=== PATIENT | female | born 1990 ===

== ENCOUNTER 2017-07-18 12:19 | Emergency (ER) | payer OTHER ==
[2017-07-18 12:19] VITALS: BMI 25.0
[2017-07-18 12:57] VITALS: RESP 18; O2SAT 98
[2017-07-18] MEDS ORDERED: Pantoprazole 40 mg EC Tab PO STA (15:26)
[2017-07-18] MEDS ORDERED: Aluminum Hydroxide/Magnesium Hydroxide Susp (30 mL) PO STA (15:26)
[2017-07-18 15:27] LABS: RBC URINE 2 /hpf (0-3); URINE BILIRUBIN NEGATIVE (NEGATIVE); URINE BLOOD NEGATIVE (NEGATIVE); URINE COLOR Yellow (YELLOW); URINE GLUCOSE (UA) NORMAL (Normal); URINE KETONE 2+ mg/dL (NEGATIVE); URINE LEUKOCYTE ESTERASE NEG Leu/uL (Negative); URINE PROTEIN NEGATIVE (NEGATIVE); URINE UROBILINOGEN NORMAL mg/dL (0.2-1.0); WBC URINE 1 /hpf (0-5)
[2017-07-18] MEDS ORDERED: Pantoprazole 40 mg EC Tab PO ONE (16:17)
[2017-07-18] MEDS ORDERED: Aluminum Hydroxide/Magnesium Hydroxide Susp (30 mL) ONE (16:17)
--- NOTE | 2017-07-18 16:21 | C.PDOC ---
History Of Present Illness 26 year old female presents to the ED with complaints of epigastric pain for one week with associated nausea and vomiting. Patient reports pain is worse after eating and describes vomit as yellow watery appearance. She denies diarrhea, chest pain, shortness of breath, or other complaints at this time. Time Seen by Provider: 07/18/17 14:58 Chief Complaint (Nursing): Abdominal Pain History Per: Patient History/Exam Limitations: no limitations Onset/Duration Of Symptoms: Days (1 week ) Current Symptoms Are (Timing): Still Present Location Of Pain/Discomfort: Epigastric Radiation Of Pain To:: None Quality Of Discomfort: Burning Associated Symptoms: denies: Fever, Chills, Nausea, Vomiting, Diarrhea Exacerbating Factors: Food (worse after eating ) Alleviating Factors: None Recent travel outside of the [place]: No Abnormal Vaginal Bleeding: No Past Medical History Reviewed: Historical Data, Nursing Documentation, Vital Signs Vital Signs: Last Vital Signs Temp 99.0 F 07/18/17 16:24 Pulse 71 07/18/17 16:24 Resp 18 07/18/17 16:24 BP 111/73 07/18/17 16:24 Pulse Ox 98 07/18/17 16:25 Family History: States: Unknown Family Hx - Social History Hx Tobacco Use: No Hx Alcohol Use: Yes Hx Substance Use: No - Immunization History Hx Tetanus Toxoid Vaccination: No Hx Influenza Vaccination: No Hx Pneumococcal Vaccination: No Review Of Systems Constitutional: Negative for: Fever, Chills Cardiovascular: Negative for: Chest Pain, Palpitations Respiratory: Negative for: Cough, Shortness of Breath Gastrointestinal: Positive for: Nausea, Vomiting, Abdominal Pain. Negative for : Diarrhea Genitourinary: Negative for: Dysuria, Vaginal Discharge, Vaginal Bleeding Physical Exam - Physical Exam Appears: Non-toxic, No Acute Distress Skin: Warm, Dry, No Rash Head: Atraumatic, Normacephalic, No Tenderness Eye(s): bilateral: Normal Inspection, PERRL, EOMI Oral Mucosa: Moist Neck: Supple Chest: Symmetrical, No Deformity Cardiovascular: Rhythm Regular, No Murmur Respiratory: No Rales, No Rhonchi, No Wheezing, Other (clear to auscultation bilaterally ) Gastrointestinal/Abdominal: Soft, No Tenderness, No Distention, No Guarding, No Rebound Back: No CVA Tenderness Extremity: Normal ROM, No Tenderness Neurological/Psych: Oriented x3 ED Course And Treatment - Laboratory Results Urine POC: Negative O2 Sat by Pulse Oximetry: 98 (RA) Pulse Ox Interpretation: Normal Progress Note: Labs were ordered and patient was given Zofran, Protonix, Pepcid , and Maalox. Reevaluation Time: 16:24 Reassessment Condition: Improved Disposition Counseled Patient/Family Regarding: Studies Performed, Diagnosis, Need For Followup, Rx Given - Disposition Referrals: [facility] [Outside] [facility] [Outside] Disposition: HOME/ ROUTINE Disposition Time: 16:24 Condition: IMPROVED Prescriptions: Famotidine [Pepcid AC] 10 mg PO QN #30 tablet Omeprazole Magnesium [Prilosec Otc] 20 mg PO QPM #30 tab Ondansetron [Zofran Odt] 4 mg PO TID PRN #9 odt PRN Reason: Nausea/Vomiting Instructions: Gastritis (ED), Diet for Ulcers and Gastritis (ED) Forms: [employer] (Belizean) Print Language: SLOVAK - Clinical Impression Clinical Impression: Abdominal pain, Nausea - Scribe Statement The provider has reviewed the documentation as recorded by the Scribe Petra Villa All medical record entries made by the Buzzibmarielena were at my direction and personally dictated by me. I have reviewed the chart and agree that the record accurately reflects my personal performance of the history, physical exam, medical decision making, and the department course for this patient. I have also personally directed, reviewed, and agree with the discharge instructions and disposition.
[2017-07-18 16:25] VITALS: BP 111/73; PULSE 71; TEMP 99
== END 2017-07-18 16:44 | disposition home or self-care (01) ==
LOC: C.ER 12:19
DX: R11.0 Nausea (principal); R10.9 Unspecified abdominal pain

== ENCOUNTER 2017-09-21 13:04 | Emergency (ER) | payer OTHER ==
[2017-09-21 13:04] VITALS: BMI 25.0
[2017-09-21 13:12] VITALS: TEMP 99; O2SAT 98
[2017-09-21] MEDS ORDERED: Sodium Chloride 0.9% 1,000 ML IV ONE ×2 (13:29→14:49)
--- NOTE | 2017-09-21 13:32 | C.PDOC ---
History Of Present Illness 26 y/o female presents to ed with complaints of 2-3 days of epigastric discomfort with associated watery stool yesterday and nausea. Patient states she had multiple episodes of watery stool and now has persistent nausea. Patient reports she has not had anything to eat or drink today secondary to nausea and denies fever, chills, vomiting, back pain, blood in stool or any other complaints at this time. LMP x2 weeks ago as per patient. Time Seen by Provider: 09/21/17 13:21 Chief Complaint (Nursing): Abdominal Pain History Per: Patient History/Exam Limitations: no limitations Onset/Duration Of Symptoms: Days Location Of Pain/Discomfort: Epigastric Past Medical History Reviewed: Historical Data, Nursing Documentation, Vital Signs Vital Signs: Last Vital Signs Temp 99.0 F 09/21/17 13:10 Pulse 95 H 09/21/17 13:10 Resp 18 09/21/17 13:10 BP 105/66 09/21/17 13:10 Pulse Ox 98 09/21/17 13:34 - Medical History PMH: No Chronic Diseases Surgical History: No Surg Hx Family History: States: No Known Family Hx - Social History Hx Tobacco Use: No Hx Alcohol Use: Yes Hx Substance Use: No - Immunization History Hx Tetanus Toxoid Vaccination: No Hx Influenza Vaccination: No Hx Pneumococcal Vaccination: No Review Of Systems Constitutional: Negative for: Fever, Chills Gastrointestinal: Positive for: Nausea, Abdominal Pain, Diarrhea. Negative for : Hematochezia Musculoskeletal: Negative for: Back Pain Skin: Negative for: Rash Physical Exam - Physical Exam Appears: Non-toxic, No Acute Distress Skin: Warm, Dry, No Rash Head: Atraumatic, Normacephalic Oral Mucosa: Moist Neck: Normal ROM, Supple Cardiovascular: Rhythm Regular Respiratory: Normal Breath Sounds, No Rales, No Rhonchi, No Wheezing Gastrointestinal/Abdominal: Soft, Tenderness (Mild epigastric), No Guarding, No Rebound Back: No CVA Tenderness Extremity: Normal ROM, Capillary Refill (<2 seconds) Neurological/Psych: Oriented x3 ED Course And Treatment - Laboratory Results Result Diagrams: 09/21/17 13:46 09/21/17 13:46 Lab Interpretation: Abnormal (HCO3 20, Na 131, urine concentrated) Urine POC: Negative O2 Sat by Pulse Oximetry: 98 (RA) Pulse Ox Interpretation: Normal Progress Note: Patient treated in ED with IV saline 2 liters and IV Protonix and Pepcid. Reevaluation Time: 15:57 Reassessment Condition: Improved (but is still c/o epigastric pain. Abdomen is soft.) Disposition Counseled Patient/Family Regarding: Studies Performed, Diagnosis, Need For Followup, Rx Given - Disposition Referrals: [facility] [Outside] Disposition: HOME/ ROUTINE Disposition Time: 15:57 Condition: IMPROVED Prescriptions: Dicyclomine [Bentyl] 20 mg PO QID PRN #10 tab PRN Reason: Pain, Moderate (4-7) Ondansetron ODT [Zofran ODT] 1 odt PO QID PRN #10 odt PRN Reason: Nausea/Vomiting Instructions: Gastroenteritis (ED) Forms: [employer] (Irish) - Clinical Impression Clinical Impression: Gastroenteritis - Scribe Statement The provider has reviewed the documentation as recorded by the Scribmarielena Luna All medical record entries made by the Scribe were at my direction and personally dictated by me. I have reviewed the chart and agree that the record accurately reflects my personal performance of the history, physical exam, medical decision making, and the department course for this patient. I have also personally directed, reviewed, and agree with the discharge instructions and disposition.
[2017-09-21] MEDS ORDERED: Sodium Chloride 0.9% 1,000 ML ONE (13:48)
[2017-09-21 13:51] LABS: BASO % 0.4 % (0.0-2.0); EOS # 0.1 K/uL (0.0-0.7); EOS % 1.8 % (0.0-4.0); HEMOGLOBIN 12.5 g/dL (11.0-16.0); LYMPH # 0.8 K/uL (1.0-4.3); LYMPH % 13.6 % (20.0-40.0); MEAN CELL VOLUME 87.4 fL (81.0-99.0); MEAN CORPUSCULAR HEMOGLOBIN 29.8 pg (27.0-31.0); MEAN CORPUSCULAR HGB CONC 34.1 g/dL (33.0-37.0); MEAN PLATELET VOLUME 7.1 fL (7.2-11.7); MONO # 0.4 K/uL (0.0-0.8); NEUT # 4.5 K/uL (1.8-7.0); NEUT % 77.2 % (50.0-75.0); RBC 4.2 Mil/uL (3.80-5.20); RED CELL DISTRIBUTION WIDTH 12.6 % (11.5-14.5); WHITE BLOOD COUNT 5.8 K/uL (4.8-10.8)
[2017-09-21 13:58] LABS: HCG,QUALITATIVE URINE NEGATIVE (NEGATIVE)
[2017-09-21 14:03] LABS: SQUAMOUS EPITHIAL 6 /hpf (0-5); URINE BACTERIA RARE (<OCC); URINE BILIRUBIN NEGATIVE (NEGATIVE); URINE BLOOD NEGATIVE (NEGATIVE); URINE CLARITY Clear (Clear); URINE COLOR Yellow (YELLOW); URINE GLUCOSE (UA) NORMAL (Normal); URINE LEUKOCYTE ESTERASE NEG Leu/uL (Negative); URINE NITRATE NEGATIVE (NEGATIVE); URINE PROTEIN NEGATIVE (NEGATIVE)
[2017-09-21 14:09] LABS: ALB/GLOB RATIO 1.2 (1.0-2.1); ALBUMIN 3.7 g/dL (3.5-5.0); ALT/SGPT 32 U/L (9-52); AST/SGOT 30 U/L (14-36); BLOOD UREA NITROGEN 8 mg/dL (7-17); CALCIUM 7.8 mg/dl (8.6-10.4); GFR AFRICAN-AMERICAN > 60; GFR NON-AFRICAN AMERICAN > 60; LIPASE 36 U/L (23-300)
[2017-09-21 16:11] VITALS: BP 112/68; PULSE 78; RESP 16
== END 2017-09-21 16:10 | disposition home or self-care (01) ==
LOC: C.ER 13:04
DX: K52.9 Noninfective gastroenteritis and colitis, unspecified (principal)
CPT/HCPCS: 80053; 81001; 83690; 84703; 85025; 96361; 96374; 96375; 99284; C9113; J2405; J7040

== ENCOUNTER 2018-09-28 16:49 | Emergency (ER) | payer OTHER ==
[2018-09-28 16:49] VITALS: BMI 25.0
[2018-09-28 16:53] VITALS: RESP 18
[2018-09-28 17:54] LABS: SQUAMOUS EPITHIAL 1 /hpf (0-5); URINE BACTERIA RARE (<OCC); URINE BILIRUBIN NEGATIVE (NEGATIVE); URINE BLOOD NEGATIVE (NEGATIVE); URINE CLARITY Hazy (Clear); URINE COLOR Yellow (YELLOW); URINE GLUCOSE (UA) NORMAL (Normal); URINE HYALINE CAST 0-2 /lpf (0-2); URINE LEUKOCYTE ESTERASE TRACE Leu/uL (Negative); URINE PROTEIN NEGATIVE (NEGATIVE); URINE UROBILINOGEN NORMAL mg/dL (0.2-1.0)
[2018-09-28] MEDS ORDERED: Belladonna-Phenobarbital PO STA (17:56)
[2018-09-28] MEDS ORDERED: Alum-Mag Hydrox-Simethicone Susp (30 mL) PO STA (17:56)
--- NOTE | 2018-09-28 18:09 | C.PDOC ---
History Of Present Illness 27yo female, with history of gastritis, comes to ER with complaints of diarrhea and vomiting x 3 days. Patient states she has had multiple episodes with 4 episodes of diarrhea and her last episode of vomiting being yesterday. Patient denies any blood in her emesis or in her diarrhea. Otherwise, no fever, chills, abdominal pain, weakness, cough, or congestion. Patient denies any recent hospital admission, recent antibiotics use, or new food intake. No additional complaints. PMD: None Time Seen by Provider: 09/28/18 17:26 Chief Complaint (Nursing): Abdominal Pain History Per: Patient History/Exam Limitations: no limitations Onset/Duration Of Symptoms: Days Current Symptoms Are (Timing): Still Present Location Of Pain/Discomfort: Diffuse, Epigastric Associated Symptoms: Nausea, Vomiting, Diarrhea. denies: Fever, Chills, Loss Of Appetite, Back Pain, Chest Pain, Constipation, Urinary Symptoms Additional History Per: Patient Abnormal Vaginal Bleeding: No Last Menstral Period: 08/24/18 Past Medical History Reviewed: Historical Data, Nursing Documentation, Vital Signs Vital Signs: Last Vital Signs Temp 98.6 F 09/28/18 16:51 Pulse 77 09/28/18 16:51 Resp 18 09/28/18 16:51 BP 103/67 09/28/18 16:51 Pulse Ox 99 09/28/18 16:51 - Medical History PMH: Gastritis Surgical History: No Surg Hx Family History: States: Unknown Family Hx - Social History Hx Tobacco Use: No Hx Alcohol Use: Yes Hx Substance Use: No - Immunization History Hx Tetanus Toxoid Vaccination: No Hx Influenza Vaccination: No Hx Pneumococcal Vaccination: No Review Of Systems Except As Marked, All Systems Reviewed And Found Negative. Constitutional: Negative for: Fever, Chills Gastrointestinal: Positive for: Vomiting, Abdominal Pain (epigastric), Diarrhea Genitourinary: Negative for: Dysuria, Frequency, Incontinence Physical Exam - Physical Exam Appears: Non-toxic, No Acute Distress Skin: Normal Color Head: Atraumatic, Normacephalic Eye(s): bilateral: Normal Inspection Neck: Normal ROM, Supple Chest: Symmetrical Cardiovascular: Rhythm Regular Respiratory: Normal Breath Sounds Gastrointestinal/Abdominal: Soft, Tenderness (minimal epigastric tenderness), No Mass, No Guarding, No Rebound Back: Normal Inspection Extremity: Normal ROM Neurological/Psych: Oriented x3 ED Course And Treatment - Laboratory Results Lab Results: Urine Color Yellow (YELLOW) 09/28/18 17:42 Urine Clarity Hazy (Clear) 09/28/18 17:42 Urine pH 7.0 (5.0-8.0) 09/28/18 17:42 Ur Specific [place] 1.020 (1.003-1.030) 09/28/18 17:42 Urine Protein Negative mg/dL (NEGATIVE) 09/28/18 17:42 Urine Glucose (UA) Normal mg/dL (Normal) 09/28/18 17:42 Urine Ketones Negative mg/dL (NEGATIVE) 09/28/18 17:42 Urine Blood Negative (NEGATIVE) 09/28/18 17:42 Urine Nitrate Negative (NEGATIVE) 09/28/18 17:42 Urine Bilirubin Negative (NEGATIVE) 09/28/18 17:42 Urine Urobilinogen Normal mg/dL (0.2-1.0) 09/28/18 17:42 Ur Leukocyte Esterase Trace Ralph/uL (Negative) 09/28/18 17:42 Urine WBC (Auto) 4 /hpf (0-5) 09/28/18 17:42 Urine RBC (Auto) 1 /hpf (0-3) 09/28/18 17:42 Ur Squamous Epith Cells 1 /hpf (0-5) 09/28/18 17:42 Urine Bacteria Rare (<OCC) 09/28/18 17:42 Hyaline Casts 0-2 /lpf (0-2) 09/28/18 17:42 O2 Sat by Pulse Oximetry: 99 (RA) Pulse Ox Interpretation: Normal Medical Decision Making Medical Decision Making: Impression: 27yo female, hx of gastritis here with epigastric pain, vomiting and diarrhea Plan: -- Urinalysis -- GI cocktail -- Upreg 1829 On reassessment, patient reports improvement of symptoms and is stable for discharge home. Instructed to keep well hydrate and to take medication as prescribed. Follow up with PMD in 2-3 days. Disposition Counseled Patient/Family Regarding: Studies Performed, Diagnosis, Need For Followup - Disposition Referrals: [facility] [Outside] [facility] [Outside] Disposition: HOME/ ROUTINE Disposition Time: 18:31 Condition: STABLE Prescriptions: Dicyclomine [Bentyl] 20 mg PO QID PRN #15 tab PRN Reason: Pain, Moderate (4-7) Instructions: Acute Abdomen (Belly Pain), Adult (DC) Forms: Gen Discharge Inst Kinyarwanda, [employer] Connect (Kinyarwanda) Print Language: SWAZI - POA Present On Arrival: None - Clinical Impression Clinical Impression: Abdominal pain, Diarrhea - Scribe Statement The provider has reviewed the documentation as recorded by the Vinay Ritter Provider Attestation: All medical record entries made by the Vinay were at my direction and personally dictated by me. I have reviewed the chart and agree that the record accurately reflects my personal performance of the history, physical exam, medical decision making, and the department course for this patient. I have also personally directed, reviewed, and agree with the discharge instructions and disposition.
[2018-09-28] MEDS ORDERED: Belladonna-Phenobarbital ONE (18:26)
[2018-09-28] MEDS ORDERED: Aluminum Hydroxide/Magnesium Hydroxide Susp (30 mL) ONE (18:27)
[2018-09-28 18:43] VITALS: BP 101/60; PULSE 69; TEMP 98.5; O2SAT 100
== END 2018-09-28 18:43 | disposition home or self-care (01) ==
LOC: C.ER 16:49
DX: R10.13 Epigastric pain (principal); R19.7 Diarrhea, unspecified